=== PATIENT | female | born 1965 | race Two or more races ===

== ENCOUNTER 2019-12-24 07:38 | Outpatient (CLI) | payer OTHER | END 2019-12-24 07:54 | disposition home or self-care (01) | LOC: NUCLEAR 07:38 | DX: I25.10 Atherosclerotic heart disease of native coronary artery without angina pectoris (principal) | CPT/HCPCS: 78452; 93017; A9500 ==

== ENCOUNTER → 2021-07-10 | Emergency (ER) | payer OTHER ==
[~2021-07-10] VITALS: Ht 167.6 cm; Wt 90.7 kg
[~2021-07-10] MED LIST: INTESTINEX680 M1 PO; TUSSIN DM SYRU118 ML PO; ZITHROMAX500 MG PO
== END | disposition home or self-care (01) ==
LOC: ER 09:41
DX: G44.89 Other headache syndrome (principal); Z03.818 Encounter for observation for suspected exposure to other biological agents ruled out

== ENCOUNTER 2021-10-12 07:59 | Emergency (ER) | payer OTHER ==
[~2021-10-12] VITALS: Ht 165.1 cm; Wt 90.7 kg
[2021-10-12] MEDS ORDERED: TOBRAMYCIN-DEXAM5 ML OP (09:31)
== END 2021-10-12 09:38 ==
LOC: ER 07:59
DX: H10.89 Other conjunctivitis (principal)

== ENCOUNTER → 2025-10-30 | Emergency (ER) | payer OTHER ==
[~2025-10-30] VITALS: Ht 167.6 cm; Wt 93.0 kg
[~2025-10-30] MED LIST changes: +CEFTRIAXONE SODIUM 1,000 MG VIAL IM ONE; +CEFTRIAXONE SODIUM 1,000 MG VIAL ONE; +CEPHALEXIN500 M1 PO; +DIPHENHYDRAMINE HCL 50 MG/ML VIAL 1ML IM ONE; +DIPHENHYDRAMINE HCL 50 MG/ML VIAL 1ML ONE; +FAMOTIDINE/PF 20 MG/2 ML VIAL IV ONE; +FAMOTIDINE/PF 20 MG/2 ML VIAL ONE; +METAXALONE800 MG PO; +ROSUVASTATIN CA20 MG PO; +SKELAXIN800 MG PO; +TOBRAMYCIN-DEXAM5 ML OP
[2025-10-30 13:55] LABS: BASO % 0.4 % (0.1-1.2); EOS # 0.23 (0.04-0.54); EOS % 3.4 % (0.7-7.0); LYMPH # 1.32 (1.18-3.74); LYMPH % 19.5 % (19.3-53.1); MEAN PLATELET VOLUME 10.10 fl (9.4-12.4); MONO # 0.73 (0.24-0.82); MONO % 10.8 % (4.7-12.5); NEUT # 4.44 (1.56-6.13); NEUT % 65.8 % (34.0-71.1); RED CELL DISTRIBUTION WIDTH 12.8 % (11.6-14.4)
[2025-10-30 14:05] LABS: ERYTHROCYTE SEDIMENTATION RATE 22 mm/hr (0-30)
[2025-10-30 14:32] LABS: BUN CREA RATIO 20.0 (7.0-25.0); CREATININE SERUM 0.92 mg/dL (0.55-1.02); GFR 61.85; GLUCOSE FASTING 101.0 mg/dL (65-100); OSMOLALITY SERUM 283.0 MOSM/KG (275-295)
== END | disposition home or self-care (01) ==
LOC: ER 12:36
PROVIDERS: Student in an Organized Health Care Education/Training Program
DX: L03.114 Cellulitis of left upper limb (principal)